=== PATIENT | male | born 1960 | race Caucasian/White ===

== ENCOUNTER 2024-12-29 16:49 | Emergency (ER) | payer MEDICARE ==
[2024-12-29 19:10] VITALS: TEMP 98
--- NOTE | 2024-12-29 19:22 | ERPHSYRPT ---
- History of Present Illness Source: patient, family Exam Limitations: no limitations Patient Subjective Stated Complaint: "I woke up last night and has this pain in my stomach, I think it's a hernia". Triage Nursing Assessment: Pt presents to ER with complaints of left sided abdominal pains since last night and worsening today. Pt is tender upon exam. Rates pain 8/10 scale. Pt states has had nausea, denies vomiting/diarrhea. Pt respirations are easy and unlabored. States is a daily drinker with no real medical issues. Skin is pink, warm, and dry. Pt is communicable. Hx Tetanus, Diphtheria Vaccination/Date Given: No Hx Influenza Vaccination/Date Given: No Hx Pneumococcal Vaccination/Date Given: No Immunizations Up to Date: No <ERIBERTO KING - Last Filed: 12/29/24 19:50> <SLICK LOPEZ - Last Filed: 12/29/24 22:18> - History of Present Illness Time Seen by Provider: 12/29/24 19:12 Physician History: Left lower abdominal pain. Has been going on for a few days. Also having some umbilical pain has been going on for several months. Patient does not usually see doctors. Just moved here from [place] therefore he does not have a doctor. Patient rates pain as an 8 out of 10. No nausea no vomiting or diarrhea. He is an everyday drinker. Denies any other medical problems. Patient is taking PO well. Same number of urinations and defecations. The patient has no signs of altered mental status, nuchal rigidity, signs of meningitis. The patient is up-to-date on all vaccinations. (ERIBERTO KING) Allergies/Adverse Reactions: No Known Drug Allergies Allergy (Verified 12/29/24 19:10) Home Medications: Cholecalciferol (Vitamin D3) [Vitamin D3] 1 cap PO DAILY 12/29/24 [History] Cyanocobalamin (Vitamin B-12) [Vitamin B12] 1 tab PO DAILY 12/29/24 [History] Saw [place] Frt/Phytosterol 2 [Prostate Sr Softgel] 1 cap PO DAILY 12/29/24 [History] Travel Risk - International Travel Have you traveled outside of the country in past 3 weeks: No - Emerging Infectious Disease Are you exhibiting symptoms associated with any current EIDs: No <ERIBERTO KING - Last Filed: 12/29/24 19:50> - Past Medical History Pertinent Past Medical History: Yes Neurological History: No Pertinent History ENT History: No Pertinent History Cardiac History: No Pertinent History Respiratory History: No Pertinent History Endocrine Medical History: No Pertinent History Musculoskeletal History: No Pertinent History GI Medical History: No Pertinent History History: No Pertinent History Psycho-Social History: No Pertinent History Male Reproductive Disorders: Prostate Problems - Past Surgical History Past Surgical History: Yes Neuro Surgical History: No Pertinent History Cardiac: No Pertinent History Respiratory: No Pertinent History Gastrointestinal: No Pertinent History Genitourinary: No Pertinent History Musculoskeletal: Other Male Surgical History: No Pertinent History Other Surgical History: carpal tunnel - Social History Smoking Status: Never smoker Exposure to second hand smoke: No Drug Use: none - Social Determinants of Health Will the patient participate in the screening: Yes Do you worry about a steady place to live?: No Do you have any problems with any of the following?: No known problems In the past 12 months,have you had to go without utilities?: No Transportation Issues: No Has anyone in your support network made you feel unsafe?: No Have you or anyone in your house had to go w/o enough food: No <ERIBERTO KING - Last Filed: 12/29/24 19:50> - Physical Exam SpO2 Interpretation: normal SpO2: 97 <ERIBERTO KING - Last Filed: 12/29/24 19:50> - Nursing Vital Signs Nursing Vital Signs: Initial Vital Signs Temperature 98.0 F 12/29/24 19:04 Pulse Rate 95 H 12/29/24 19:04 Respiratory Rate 18 12/29/24 19:04 Blood Pressure 153/104 12/29/24 19:04 O2 Sat by Pulse Oximetry 97 12/29/24 19:04 Pain Scale Pain Intensity 2 - Physical Exam Comments: 12/29/24 19:21 Review of Systems Constitutional: Negative for fever. HENT: Negative for congestion. Respiratory: Negative for shortness of breath. Cardiovascular: Negative for chest pain. Gastrointestinal: Abdominal pain Genitourinary: Negative for dysuria. Musculoskeletal: Negative for back pain. Skin: Negative for rash. Neurological: Negative for headaches. Psychiatric/Behavioral: Negative for behavioral problems. All other systems reviewed and are negative. Physical Exam Vitals signs and nursing note reviewed. Constitutional: Appearance: Patient is well-developed. HENT: Head: Normocephalic and atraumatic. Eyes: Conjunctiva/sclera: Conjunctivae normal. Neck: Musculoskeletal: Normal range of motion. Trachea: No tracheal deviation. Cardiovascular: Rate and Rhythm: Normal rate. Heart sounds normal. Pulmonary: Effort: Pulmonary effort is normal. No respiratory distress. Abdominal: Palpations: Abdomen is soft. Reducible umbilical hernia in place. Left lower quadrant tenderness. No rebound or guarding no overlying skin changes. Musculoskeletal: General: No deformity. Skin: General: Skin is warm and dry. Neurological/ Psychiatric: Mental Status: Mental status, behavior, interaction with environment is appropriate for patient's age and condition (ERIBERTO KING) - Course Nursing assessment & vital signs reviewed: Yes <ERIBERTO KING - Last Filed: 12/29/24 19:50> Ordered Tests: Active Orders 24 hr Category Date Time Status IV Insertion STAT Care 12/29/24 19:17 Active ABDOMEN AND PELVIS W CONTRAST [CT] Stat Exams 12/29/24 19:17 Taken CBC W DIFF Stat Lab 12/29/24 19:35 Completed CMP Stat Lab 12/29/24 19:35 Completed LIPASE Stat Lab 12/29/24 19:35 Completed UA W/RFX UR CULTURE Stat Lab 12/29/24 21:04 Completed Medication Summary Discontinued Medications Generic Name Dose Route Start Last Admin Trade Name Freq PRN Reason Stop Dose Admin Diphenhydramine HCl 25 mg 12/29/24 19:17 12/29/24 19:44 Diphenhydramine Hcl 50 Mg/Ml Vial IV 12/29/24 19:18 25 mg STAT ONE Administration Diphenhydramine HCl Confirm 12/29/24 19:29 Diphenhydramine Hcl 50 Mg/Ml Vial Administered 12/29/24 19:30 Dose 50 mg .ROUTE .STK-MED ONE Droperidol 1.25 mg 12/29/24 19:17 12/29/24 19:45 Droperidol 5 Mg/2 Ml Vial IV 12/29/24 19:18 1.25 mg STAT ONE Administration Droperidol Confirm 12/29/24 19:29 Droperidol 5 Mg/2 Ml Vial Administered 12/29/24 19:30 Dose 5 mg .ROUTE .STK-MED ONE Sodium Chloride 1,000 mls @ 999 mls/hr 12/29/24 19:17 12/29/24 20:36 Sodium Chloride 0.9% 1000 Ml IV 12/29/24 20:17 Infused .Q1H1M STA Infusion Sodium Chloride Confirm 12/29/24 19:30 Sodium Chloride 0.9% 1000 Ml Administered 12/29/24 19:31 Dose 1,000 mls @ ud .ROUTE .STK-MED ONE Ketorolac Tromethamine 30 mg 12/29/24 19:17 12/29/24 19:43 Ketorolac Tromethamine 30 Mg/Ml Inj IV 12/29/24 19:18 30 mg STAT ONE Administration Ketorolac Tromethamine Confirm 12/29/24 19:29 Ketorolac Tromethamine 30 Mg/Ml Inj Administered 12/29/24 19:30 Dose 30 mg .ROUTE .STK-MED ONE Morphine Sulfate 4 mg 12/29/24 19:17 12/29/24 19:48 Morphine Sulfate 4 Mg/Ml Injection IV 12/29/24 19:18 4 mg STAT ONE Administration Morphine Sulfate Confirm 12/29/24 19:30 Morphine Sulfate 4 Mg/Ml Injection Administered 12/29/24 19:31 Dose 4 mg .ROUTE .STK-MED ONE Ondansetron HCl 4 mg 12/29/24 19:17 12/29/24 19:39 Ondansetron Hcl 4 Mg/2 Ml Vial IV 12/29/24 19:18 4 mg STAT ONE Administration Ondansetron HCl Confirm 12/29/24 19:28 Ondansetron Hcl 4 Mg/2 Ml Vial Administered 12/29/24 19:29 Dose 4 mg .ROUTE .STK-MED ONE Lab/Rad Data: Laboratory Result Diagrams 12/29/24 19:35 12/29/24 19:35 Laboratory Results 12/29/24 12/29/24 12/29/24 Range/Units 21:04 19:35 19:35 WBC 11.9 H (4.23-9.07) x10^3/uL RBC 4.95 (4.63-6.08) x10^6/uL Hgb 15.2 (13.7-17.5) g/dL Hct 45.1 (40.1-51.0) % MCV 91.1 (79.0-92.2) fL MCH 30.7 (25.7-32.2) pg MCHC 33.7 (32.3-36.5) g/dL RDW 14.3 (11.6-14.4) % Plt Count 259 (163-337) x10^3/uL MPV 10.3 (9.4-12.4) fL Gran % 72.6 H (34.0-67.9) % Immature Gran % (Auto) 0.4 (0.001-0.429) % Nucleat RBC Rel Count 0.0 (0.00-0.2) % Eos # (Auto) 0.08 (0.04-0.54) x10^3/uL Immature Gran # (Auto) 0.05 H (0.001-0.031) x10^3u/L Absolute Lymphs (auto) 2.19 (1.32-3.57) x10^3/uL Absolute Monos (auto) 0.91 H (0.30-0.82) x10^3/uL Absolute Nucleated RBC 0.00 (0.00-0.012) x10^3u/L Lymphocytes % 18.4 L (21.8-53.1) % Monocytes % 7.6 (5.3-12.2) % Eosinophils % 0.7 L (0.8-7.0) % Basophils % 0.3 (0.2-1.2) % Absolute Granulocytes 8.63 H (1.78-5.38) x10^3/uL Basophils # 0.04 (0.01-0.08) x10^3/uL Sodium 133 L (135-145) mmol/L Potassium 3.6 (3.5-5.1) mmol/L Chloride 104 (98-107) mmol/L Carbon Dioxide 22 (22-30) mmol/L Anion Gap 10.8 (5-15) MEQ/L BUN 13 (9-20) mg/dL Creatinine 0.99 (0.66-1.25) mg/dL Estimated GFR 84.5 ML/MIN Glucose 144 H (74-106) mg/dL Calcium 9.3 (8.4-10.2) mg/dL Total Bilirubin 0.60 (0.2-1.3) mg/dL AST 40 (17-59) U/L ALT 26 (0-50) U/L Alkaline Phosphatase 126 (38-126) U/L Serum Total Protein 7.0 (6.3-8.2) g/dL Albumin 4.3 (3.5-5.0) g/dL Lipase 78 (23-300) U/L Urine Color Yellow (Yellow) Urine Appearance Clear (Clear) Urine pH 5.5 (4.6-8.0) Ur Specific [place] 1.010 (1.005-1.030) Urine Protein Negative (Negative) Urine Glucose (UA) Negative (Negative) mg/dL Urine Ketones Negative (Negative) Urine Blood Small A (Negative) Urine Nitrite Negative (Negative) Urine Bilirubin Negative (Negative) Urine Urobilinogen 0.2 (0.2) mg/dL Ur Leukocyte Esterase Negative (Negative) U Hyaline Cast (Auto) NONE SEEN (0-2) /LPF Urine Microscopic RBC 3-5 (0-5) /HPF Urine Microscopic WBC 0-2 (0-5) /HPF Ur Epithelial Cells None Seen (None Seen) /HPF Urine Bacteria None Seen (None Seen) /HPF Urine Culture Reflexed NO (NO) - Progress Progress: improved <ERIBERTO KING - Last Filed: 12/29/24 19:50> - Progress Counseled pt/family regarding: lab results, diagnosis, need for follow-up, rad results <SLICK LOPEZ - Last Filed: 12/29/24 22:18> - Progress Progress Note: 12/29/24 19:22 Differential diagnosis includes kidney stone, compression fracture, infection, UTI, triple AAA - basic labs including: CBC, lipase, CMP, UA - insert IV for symptom management - consider imaging: CT ab/pelvis or U/S 12/29/24 19:50 full workup pending, transfer of care to Dr. Slick Lopez at 8 PM. He will follow-up on all labs and imaging. Disposition per this and his reexam. (ERIBERTO KING) 12/29/24 22:17 Assumed care at [address] abdomen pelvis and labs pending. Labs largely unremarkable. UA shows trace blood. CT scan showed mild diverticulitis with bladder wall thickening and distention. Evidence of BPH likely. Will treat patient with Augmentin and Flagyl. Advised patient to follow-up with PCP or return emergency room if symptoms worsen. (SLICK LOPEZ) Medical Desision Making - Diagnostic Testing Diagnostic test were ordered, analyzed, and reviewed by me: Yes Radiological Interpretation: Interpreted by me, Reviewed by me, Teleradiologist Report - Risk of complications The pt has a mod risk of morbidity or mortality based on: Need for prescription drug management <SLICK LOPEZ - Last Filed: 12/29/24 22:18> - Departure Critical Care Time: No <ERIBERTO KING - Last Filed: 12/29/24 19:50> - Departure Departure Disposition: Home <SLICK LOPEZ - Last Filed: 12/29/24 22:18> - Departure Clinical Impression: Left lateral abdominal pain, Diverticulitis, BPH (benign prostatic hyperplasia) Condition: Stable Referrals: Provider,Unknown [Primary Care Provider, UNKNOWN] - Follow up/PCP as directed Instructions: Diverticulitis - Discharge instructions Prescriptions: Amox Tr/[place]ass Clav. 875 mg [Augmentin 875-125 Tablet] 875 mg PO BID 7 Days #14 tablet Metronidazole 500 mg [Flagyl 500 MG] 500 mg PO TID 7 Days #21 tablet
[2024-12-29] MEDS ORDERED: Zofran 4 MG/2 ML VIAL ONE (19:28)
[2024-12-29] MEDS ORDERED: Inapsine 5 MG/2 ML ONE (19:29)
[2024-12-29] MEDS ORDERED: BENADRYL 50 MG/ML ONE (19:29)
[2024-12-29] MEDS ORDERED: TORAdol 30 mg Injection ONE (19:29)
[2024-12-29] MEDS ORDERED: MORPHINE SULFATE 4 MG INJ ONE (19:30)
[2024-12-29] MEDS ORDERED: Sodium Chloride 0.9% 1000 ML 1,000 ML ONE (19:30)
[2024-12-29] MEDS: Sodium Chloride 0.9% 1000 ML 1,000 ML IV STA (19:36)
[2024-12-29] MEDS: Zofran 4 MG/2 ML VIAL IV ONE (19:39)
[2024-12-29] MEDS: TORAdol 30 mg Injection IV ONE (19:43)
[2024-12-29] MEDS: BENADRYL 50 MG/ML IV ONE (19:44)
[2024-12-29] MEDS: Inapsine 5 MG/2 ML IV ONE (19:45)
[2024-12-29] MEDS: MORPHINE SULFATE 4 MG INJ IV ONE (19:48)
[2024-12-29 20:04] LABS: Absolute Neutrophil Ct (ANC) 8.63 x10^3/uL (1.78-5.38); BASOPHIL % 0.3 % (0.2-1.2); Basophil (Absolute #) 0.04 x10^3/uL (0.01-0.08); Eosinophil % 0.7 % (0.8-7.0); Eosinophil (Absolute #) 0.08 x10^3/uL (0.04-0.54); Hematocrit 45.1 % (40.1-51.0); Hemoglobin 15.2 g/dL (13.7-17.5); IMMATURE GRAN # 0.05 x10^3u/L (0.001-0.031); IMMATURE GRAN % 0.4 % (0.001-0.429); Lymphocyte (Absolute #) 2.19 x10^3/uL (1.32-3.57); Lymphocytes % 18.4 % (21.8-53.1); Mean Cell Volume 91.1 fL (79.0-92.2); Mean Corpuscular Hemoglobin 30.7 pg (25.7-32.2); Mean Corpuscular Hgb Concent. 33.7 g/dL (32.3-36.5); Mean Platelet Volume 10.3 fL (9.4-12.4); Monocyte (Absolute #) 0.91 x10^3/uL (0.30-0.82); Monocytes % 7.6 % (5.3-12.2); Neutrophil % 72.6 % (34.0-67.9); Platelet Count 259 x10^3/uL (163-337); Red Blood Count 4.95 x10^6/uL (4.63-6.08); Red Cell Distribution Width 14.3 % (11.6-14.4); White Blood Count 11.9 x10^3/uL (4.23-9.07)
[2024-12-29 20:08] VITALS: RESP 18
[2024-12-29 20:14] LABS: ALBUMIN 4.3 g/dL (3.5-5.0); ANION GAP 10.8 MEQ/L (5-15); BILIRUBIN,TOTAL 0.6 mg/dL (0.2-1.3); Calcium 9.3 mg/dL (8.4-10.2); Creatinine 1 0.99 mg/dL (0.66-1.25); EST GLOMERULAR FILTRATION RATE 84.5 ML/MIN; Potassium 3.6 mmol/L (3.5-5.1)
[2024-12-29 21:17] LABS: Appearance Clear (Clear); Bacteria None Seen /HPF (None Seen); Bilirubin Negative (Negative); Blood Small (Negative); Epithelial Cells None Seen /HPF (None Seen); Glucose, Urine Negative (Negative); Hyaline Casts NONE SEEN /LPF (0-2); Ketones Negative (Negative); Leukocyte Esterase Negative (Negative); Nitrite Negative (Negative); Ph 5.5 (4.6-8.0); Protein,Urine Dip Negative (Negative); Urobilinogen 0.2 mg/dL (0.2); WBC 0-2 /HPF (0-5)
[2024-12-29 22:06] VITALS: BP 134/84; PULSE 67; O2SAT 94
[2024-12-29] MEDS ORDERED: Flagyl 500 MG ONE (22:20)
[2024-12-29] MEDS ORDERED: Augmentin 875-125 Tablet ONE (22:20)
[2024-12-29] MEDS: Augmentin 875-125 Tablet PO ONE (22:21)
[2024-12-29] MEDS: Flagyl 500 MG PO ONE (22:21)
--- NOTE | 2024-12-30 07:58 | XRAY ---
Indication: Left lower abdomen pain. Multiple contiguous axial images obtained through the abdomen and pelvis using 80 cc Isovue 370 contrast. Comparison: None Lung bases demonstrates mild bibasilar dependent atelectasis. No infiltrate or effusion. Heart not enlarged. Noncontrasted stomach and bowel loops appear nonobstructed. Minimal scattered colonic diverticulosis. Junction descending and sigmoid colon demonstrates mild circumferential wall thickening with mild pericolonic stranding favoring diverticulitis. Tiny adjacent free fluid presumed reactive. No walled off fluid collection or free air. Both kidneys enhance and excrete with incidental bilateral extrarenal pelvises. Left kidney demonstrates nonobstructing punctate calculus and mid renal cortical thinning/scarring. Mildly distended urinary bladder demonstrates mild circumferential wall thickening either incomplete distention versus cystitis. Remaining liver, gallbladder, pancreas, spleen, adrenal glands, kidneys, ureters, and bladder are unremarkable. Minimal scattered aortoiliac calcifications. No AAA or pathological retroperitoneal lymphadenopathy. Osseous structures intact with minimal/mild degenerative changes throughout spine, greatest at lumbosacral junction. Small fatty umbilical hernia. Impression: 1. Minimal colonic diverticulosis. Mild noncomplicated diverticulitis junction of descending and sigmoid colon as detailed. 2. Mild distended urinary bladder with circumferential wall thickening either incomplete distention versus cystitis. 3. Incidental nonobstructing left renal punctate calculus, left renal cortical thinning/scarring, fatty umbilical hernia, arteriosclerotic disease, and chronic bony findings.
== END 2024-12-29 22:40 | disposition home or self-care (01) ==
LOC: ED 16:49
DX: R10.32 Left lower quadrant pain (principal); K57.92 Diverticulitis of intestine, part unspecified, without perforation or abscess without bleeding; N40.0 Benign prostatic hyperplasia without lower urinary tract symptoms; Z79.899 Other long term (current) drug therapy
CPT/HCPCS: 36415; 74177; 80053; 81001; 83690; 85025; 96361; 96374; 96375; 99285; J1200; J1790; J1885; J2270; J2405; A9270-GY